=== PATIENT | female | born 1965 | race Caucasian/White ===

== ENCOUNTER 2016-10-07 19:17 | Emergency (ER) | payer OTHER ==
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
[2016-10-07] MEDS ORDERED: ONDANSETRON 4 MG TAB.RAPDIS PO ONE (20:43)
[2016-10-07] MEDS ORDERED: KETOROLAC TROMETHAMINE 60 MG/2 ML SDV IM ONE (20:43)
[2016-10-07] MEDS ORDERED: HYDROMORPHONE HCL INJ/PF 2 MG/ML AMPULE IM ONE (20:43)
[2016-10-07 22:11] VITALS: BP 145/90
== END 2016-10-07 22:15 | disposition home or self-care (01) ==
LOC: ER 19:17
DX: M54.12 Radiculopathy, cervical region (principal); S19.9XXA Unspecified injury of neck, initial encounter; R68.84 Jaw pain; M79.602 Pain in left arm; W19.XXXA Unspecified fall, initial encounter
CPT/HCPCS: 99283; 96372; J1885; S0119; J1170